=== PATIENT | male | born 1970 | race Caucasian/White ===

== ENCOUNTER → 2016-06-25 | Outpatient (CLI) | payer MEDICAID | DX: Z53.9 Procedure and treatment not carried out, unspecified reason (principal) ==

== ENCOUNTER 2016-07-23 06:49 | Outpatient (CLI) | payer MEDICAID | END 2016-07-23 06:50 | disposition home or self-care (01) | DX: R42 Dizziness and giddiness (principal); K92.1 Melena ==

== ENCOUNTER 2016-10-24 09:44 | Outpatient (CLI) | payer MEDICAID | END 2016-10-24 09:45 | disposition home or self-care (01) | DX: Z79.899 Other long term (current) drug therapy (principal) ==

== ENCOUNTER 2016-11-13 14:27 | Outpatient (CLI) | payer MEDICAID, OTHER ==
--- NOTE | 2016-11-14 09:16 | XRAY Report ---
THREE-VIEW RIGHT FOOT: 11/13/2016 CLINICAL INDICATION: Pain. FINDINGS: AP, lateral, oblique views of the right foot demonstrate plantar and posterior calcaneal s purring, small. There is no evidence of acute fracture. Mild osteoarthritis and mild hallux valgus are noted at the 1st metatarsophalangeal joint. IMPRESSION: MILD DEGENERATIVE CHANGES. NO EVIDENCE OF ACUTE FRACTURE. JOB #: [id number] EXT JOB #:[id number]
== END 2016-11-13 14:28 | disposition home or self-care (01) ==
LOC: DI.N 14:27
PROVIDERS: ATTEND Family Medicine
DX: M19.071 Primary osteoarthritis, right ankle and foot (principal)

== ENCOUNTER 2017-03-27 14:55 | Outpatient (CLI) | payer MEDICAID ==
--- NOTE | 2017-03-28 15:19 | XRAY Report ---
EXAM: CHEST RADIOGRAPHY EXAM DATE: 03/27/2017 03:10 PM. CLINICAL HISTORY: CHEST PAIN. COMPARISON: None. TECHNIQUE: 2 views. FINDINGS: Lungs/Pleura: No acute intrathoracic plain film abnormality. Normal lung volumes. No evidence of foca l infiltrate or effusion. No pneumothorax. Mediastinum: Heart and mediastinal contours are unremarkable. Other: None. IMPRESSION: No acute intrathoracic plain film abnormality. [facility] Referring Provider Line: [phone] SITE ID: [id number]
== END 2017-03-27 14:56 | disposition home or self-care (01) ==
LOC: DI.N 14:55
PROVIDERS: ATTEND Family Medicine
DX: R07.9 Chest pain, unspecified (principal)
CPT/HCPCS: 71020

== ENCOUNTER 2017-04-16 13:24 | Outpatient (CLI) | payer MEDICAID ==
[2017-04-16 19:26] VITALS: BP 144/76
--- NOTE | 2017-04-16 22:29 | CARDIAC PROCEDURE NOTE ---
DATE OF SERVICE: 04/16/2017 00:00:00 PRIMARY CARE PHYSICIAN: Reynaldo Zhang MD PROCEDURE: Cardiac treadmill stress test. REASON FOR PROCEDURE: Chest pain. CARDIAC RISK FACTORS: Include smoking and family history. No previous cardiac procedures. CLINICAL HISTORY: A 46-year-old man without known coronary artery disease. INITIAL RESTING VITAL SIGNS: Blood pressure 144/76, heart rate 65, height 74 inches, weight 299 pound s, BMI 38.4. PROCEDURE AND FINDINGS: The patient's identity and date verified. Consent signed. The patient p erformed treadmill exercise using a Rakesh protocol completing 9 minutes and 11 seconds and completing an estimated workload of 10.1 metabolic equivalents. Predicted exercise time was 10-25 to 11-25. Max imal blood pressure was 192/70 with a heart rate of 164 beats per minute or 93% of maximum predicted heart rate for age. The blood pressure response to exercise was within normal limits. The patient sto pped because of leg fatigue. The resting ECG demonstrated normal sinus rhythm with no abnormality. Ma ximum ST segment depression was less than 0.5 mm and upsloping. There was a single PVC. The 1 minute heart rate recovery was within normal limits. FINAL IMPRESSIONS 1. Negative stress electrocardiogram for ischemia by electrocardiographic criteria. 2. Negative stress test clinically for angina. 3. [place] [employer] functional class I. JOB #: [id number] EXT JOB #:[id number]
--- NOTE | 2017-04-17 16:44 | XRAY Report ---
CARDIOVASCULAR TREADMILL TEST There was no imaging performed for this exam. Procedure notes and results available in the EMR. GORDY
== END 2017-04-16 13:25 | disposition home or self-care (01) ==
LOC: DI 13:24
PROVIDERS: ATTEND Family Medicine
DX: R07.9 Chest pain, unspecified (principal); F17.200 Nicotine dependence, unspecified, uncomplicated
CPT/HCPCS: 93017

== ENCOUNTER 2017-05-07 08:00 | Outpatient (CLI) | payer MEDICAID ==
[2017-05-07 19:37] LABS: BASOPHILS % (AUTO) 0.5 %; EOSINOPHILS # (AUTO) 0.3 10^3/uL (0.0-0.7); EOSINOPHILS % (AUTO) 3.4 %; HCT - HEMATOCRIT 46.5 % (42.0-52.0); HGB - HEMOGLOBIN 15.6 g/dL (14.0-18.0); LYMPHOCYTES # (AUTO) 3.4 10^3/uL (1.5-3.5); LYMPHOCYTES % (AUTO) 36.6 %; MEAN CORPUSCULAR HEMOGLOBIN 28.9 pg (27.0-31.0); MEAN CORPUSCULAR HGB CONC 33.5 g/dL (32.0-36.0); MEAN CORPUSCULAR VOLUME 86.3 fL (80.0-94.0); MEAN PLATELET VOLUME 10.1 fL (7.4-11.4); MONOCYTES # (AUTO) 0.6 10^3/uL (0.0-1.0); MONOCYTES % (AUTO) 6.4 %; NEUTROPHILS # (AUTO) 4.9 10^3/uL (1.5-6.6); NEUTROPHILS % (AUTO) 53.1 %; NUCLEATED RED BLOOD CELLS AUTO 0.1 /100WBC; RED BLOOD COUNT 5.39 10^6/uL (4.70-6.10); RED CELL DISTRIBUTION WIDTH 14.1 % (12.0-15.0); UNCORRECTED WHITE BLOOD COUNT 9.2 x10^3/uL; WHITE BLOOD COUNT 9.2 x10^3/uL (4.8-10.8)
[2017-05-07 20:35] LABS: ALBUMIN/GLOBULIN RATIO 1.3 (1.0-2.2); BILIRUBIN,TOTAL 0.6 mg/dL (0.2-1.0); BUN - BLOOD UREA NITROGEN 14 mg/dL (6-20); CALCIUM 9.1 mg/dL (8.5-10.3); CARBON DIOXIDE - CO2 26 mmol/L (21-32); CHLORIDE 105 mmol/L (101-111); CHOL/HDL RATIO 4.8 (<5.0); CHOLESTEROL 195 mg/dL; CREATININE 0.8 mg/dL (0.6-1.2); GFR - MDRD 105 (>89); GLUCOSE 106 mg/dL (70-100); HDL CHOLESTEROL 41 mg/dL; LDL/HDL RATIO 3.1 (<3.6); POTASSIUM 3.7 mmol/L (3.5-5.0); SODIUM 138 mmol/L (135-145); TOTAL PROTEIN 6.8 g/dL (6.7-8.2); TRIGLYCERIDES 126 mg/dL; VLDL CHOLESTEROL 25 mg/dL
== END 2017-05-07 08:01 | disposition home or self-care (01) ==
LOC: LAB.N 08:00
PROVIDERS: ATTEND Internal Medicine Cardiovascular Disease
DX: R07.9 Chest pain, unspecified (principal); R00.2 Palpitations
CPT/HCPCS: 36415; 80053; 80061; 84443; 85025

== ENCOUNTER 2017-09-21 13:03 | Outpatient (CLI) | payer MEDICAID | END 2017-09-21 13:04 | disposition home or self-care (01) | LOC: SC 13:03 | PROVIDERS: ATTEND Internal Medicine Pulmonary Disease | DX: G47.30 Sleep apnea, unspecified (principal); G47.10 Hypersomnia, unspecified; R06.83 Snoring; G47.8 Other sleep disorders | CPT/HCPCS: 99203; 99212 ==

== ENCOUNTER 2017-11-15 19:58 | Outpatient (CLI) | payer MEDICAID | END 2017-11-15 19:59 | disposition home or self-care (01) | LOC: SC 19:58 | PROVIDERS: ATTEND Internal Medicine Pulmonary Disease | DX: G47.61 Periodic limb movement disorder (principal) | CPT/HCPCS: 95810 ==

== ENCOUNTER 2017-12-22 13:25 | Outpatient (CLI) | payer MEDICAID | END 2017-12-22 13:26 | disposition home or self-care (01) | LOC: SC 13:25 | PROVIDERS: ATTEND Internal Medicine Pulmonary Disease | DX: G47.33 Obstructive sleep apnea (adult) (pediatric) (principal); G47.61 Periodic limb movement disorder | CPT/HCPCS: 99212; 99213 ==

== ENCOUNTER 2018-04-19 10:44 | Day surgery (SDC) | payer MEDICAID ==
[2018-04-19] MEDS ORDERED: LACTATED RINGERS 1,000 ML IV ONE (11:16)
[2018-04-19] MEDS ORDERED: fentaNYL 250 MCG/5 ML VIAL IVP ONE (11:40)
[2018-04-19] MEDS ORDERED: MIDAZOLAM 2 MG/2 ML VIAL IVP ONE (11:40)
[2018-04-19 12:23] VITALS: BP 134/91
== END 2018-04-19 10:45 | disposition home or self-care (01) ==
LOC: SDS 10:44
PROVIDERS: ATTEND Surgery
PROC: 0DJD8ZZ Inspection of Lower Intestinal Tract, Via Natural or Artificial Opening Endoscopic (ICD-10-PCS; principal; 2018-04-19 12:00)
DX: K57.32 Diverticulitis of large intestine without perforation or abscess without bleeding (principal); R10.32 Left lower quadrant pain; K64.8 Other hemorrhoids; E66.9 Obesity, unspecified; F17.210 Nicotine dependence, cigarettes, uncomplicated; Z80.0 Family history of malignant neoplasm of digestive organs; Z68.41 Body mass index [BMI] 40.0-44.9, adult; Z87.19 Personal history of other diseases of the digestive system; Z83.71 Family history of colonic polyps
CPT/HCPCS: 45378; J7120

== ENCOUNTER 2020-08-08 17:41 | Outpatient (CLI) | payer OTHER, MEDICAID ==
[2020-08-08] MEDS ORDERED: IOVERSOL 320 100 ML VIAL IVP ONE (17:46)
--- NOTE | 2020-08-08 18:54 | CT Report ---
PROCEDURE: Abdomen/Pelvis WO INDICATIONS: Left flank/side pain TECHNIQUE: Noncontrast 5 mm thick sections acquired from the diaphragms to the symphysis. 5 mm coronal and sagi ttal reformats were then performed. For radiation dose reduction, the following was used: automated exposure control, adjustment of mA and/or kV according to patient size. COMPARISON: None. FINDINGS: Image quality: Excellent. ABDOMEN: Lung bases: There is mild atelectasis and scarring the lung bases. Heart size is normal. Solid organs: Noncontrast evaluation of the liver demonstrates no focal hepatic lesions. Gallbladder appears within normal limits without calcified gallstones. The spleen is normal in size. Pancreas i s normal in contours. No adrenal nodules. Kidneys demonstrate no nephrolithiasis or hydronephrosis. There is a small exophytic left renal cyst. The ureters are nondistended. Peritoneum and bowel: Unenhanced bowel loops demonstrate normal wall thickness and caliber. The arnav endix is normal in appearance. Colonic diverticulosis is present without acute diverticulitis. No mau e fluid or air. Nodes and vessels: No retroperitoneal or mesenteric adenopathy by size criteria. Aorta and inferior vena cava are normal in caliber. Miscellaneous: No ventral hernias. PELVIS: Genitourinary: Bladder wall thickness is normal. Miscellaneous: No inguinal hernias or adenopathy. Bones: No suspicious bony lesions. No vertebral body compression fractures. IMPRESSION: 1. No definite acute intra-abdominal abnormality. Specifically, no evidence of nephrolithiasis or obs tructive uropathy. 2. Colonic diverticulosis without acute diverticulitis. Reviewed by: Steven Truong MD on 08/08/2020 5:53 PM [place] Approved by: Steven Truong MD on 08/08/2020 5:53 PM AKST Station ID: [id number]
== END 2020-08-08 17:42 | disposition home or self-care (01) ==
LOC: DI 17:41
PROVIDERS: ATTEND Nurse Practitioner Acute Care
DX: R10.9 Unspecified abdominal pain (principal); K57.30 Diverticulosis of large intestine without perforation or abscess without bleeding